=== PATIENT | female | born 1965 | race Caucasian/White ===

== ENCOUNTER → 2019-12-10 | Outpatient (CLI) | payer BC ==
[~2019-12-10] MED LIST: ASPI1TAB PO; CALC-694 PO; CARB200T48 PO; CARB200T76 PO; CARB400T PO; CARB400T4 PO; CYCL10TA9 PO; FERR240T15 PO; FEXO1TAB42 PO; FISH1200 PO; FOLIC ACID; GLUCOSAMINE; GLUCOSAMINE PO; HYDR-2889 PO; HYDR-34 PO; HYDR-3714 PO; HYDR-3720 PO; HYDR-4342 PO; HYDR1CAP2; INUL1TAB3 PO; IRON; MAGN250T2 PO; MV-M1TAB57 PO; ONDN4T PO; PANT40TA2 PO; PANT40TA3 PO; POTA99TA21 PO; ROPI0.5T4 PO; SUCR1TAB PO; SUCR1TAB36 PO
== END ==
LOC: LAB FS 10:34
PROVIDERS: ATTEND Orthopaedic Surgery
DX: Z01.812 Encounter for preprocedural laboratory examination (principal); M75.102 Unspecified rotator cuff tear or rupture of left shoulder, not specified as traumatic; S43.432A Superior glenoid labrum lesion of left shoulder, initial encounter; Z20.828 Contact with and (suspected) exposure to other viral communicable diseases
CPT/HCPCS: 87635

== ENCOUNTER 2019-12-13 10:58 | Outpatient (RCR) | payer BC ==
[~2019-12-13] VITALS: Ht 163 cm; Wt 110.5 kg
[~2019-12-13 10:58] MED LIST changes: -CALC-694 PO; -CARB200T48 PO; -CARB400T4 PO; -FERR240T15 PO; -HYDR-4342 PO; -MAGN250T2 PO; -MV-M1TAB57 PO; -PANT40TA3 PO; -POTA99TA21 PO
[2019-12-13] MEDS ORDERED: CALC-694 PO (12:41)
[2019-12-13] MEDS ORDERED: POTA99TA21 PO (12:41)
[2019-12-13] MEDS ORDERED: HYDR-4342 PO (12:41)
[2019-12-13] MEDS ORDERED: PANT40TA3 PO (12:41)
[2019-12-13] MEDS ORDERED: CARB400T4 PO (12:41)
[2019-12-13] MEDS ORDERED: MAGN250T2 PO (12:41)
[2019-12-13] MEDS ORDERED: CARB200T48 PO (12:41)
[2019-12-13] MEDS ORDERED: MV-M1TAB57 PO (12:41)
[2019-12-13] MEDS ORDERED: FERR240T15 PO (12:41)
== END 2019-12-13 12:46 | disposition home or self-care (01) ==
LOC: PREOP 10:58
PROVIDERS: ATTEND Orthopaedic Surgery
DX: Z01.818 Encounter for other preprocedural examination (principal)

== ENCOUNTER 2019-12-15 08:49 | Day surgery (SDC) | payer BC ==
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
[2019-12-15] VITALS (9 sets, daily range): BP systolic 93–151; BP diastolic 42–109
[~2019-12-15] VITALS: Ht 163 cm; Wt 110.5 kg
[~2019-12-15 08:49] MED LIST changes: +CALC-694 PO; +CARB200T48 PO; +CARB400T4 PO; +FERR240T15 PO; +HYDR-4342 PO; +MAGN250T2 PO; +MV-M1TAB57 PO; +PANT40TA3 PO; +POTA99TA21 PO; +oxyCODONE/APAP 5/325MG (PERCOCET 5) TABLET PO PRN
[2019-12-15] MEDS ORDERED: ceFAZolin INJECTION 1,000 MG in WATER (STERILE) FOR INJECTION 10 ML IV ONE (09:00)
--- NOTE | 2019-12-15 09:23 | Progress Note-Pre Operative ---
Pre-Operative Progress Note H&P Reviewed The H&P was reviewed, patient examined and no changes noted. Date Seen by Provider: Dec 15, 2019 Time Seen by Provider: : Date H&P Reviewed: Dec 15, 2019 Time H&P Reviewed: : Pre-Operative Diagnosis: left shoulder SLAP tear SOTO BURLESON MD Dec 15, 2019 09:23
--- NOTE | 2019-12-15 09:24 | Progress Note-Post Operative ---
Post-Operative Progess Note Surgeon (s)/Dish Washer (s) Surgeon SOTO BURLESON MD Dish Washer: Dae Corrales Pre-Operative Diagnosis left shoulder SLAP tear Post-Operative Diagnosis left shoulder SLAP tear Procedure & Operative Findings Date of Procedure 12/15/19 Procedure Performed/Findings left shoulder arthroscopic biceps tenotomy and labral debridement Anesthesia Type GETA Estimated Blood Loss Estimated blood loss (mL): minimal Specimens/Packing Specimens Removed none Packing: none SOTO BURLESON MD Dec 15, 2019 09:24
[2019-12-15] MEDS ORDERED: BUPIVACAINE 0.25% 30 ML (SENSORCAINE) VIAL ONE ×2 (09:33→10:21)
[2019-12-15] MEDS ORDERED: MIDAZOLAM 2 MG/2 ML (VERSED) VIAL ONE (09:33)
[2019-12-15] MEDS: LACTATED RINGERS 1,000 ML IV PRN ×2 (09:34→12:30)
--- NOTE | 2019-12-15 09:37 | NUR ---
Pt PREFERS TO SCHEDULE HER OWN PT SESSIONS, WILL CALL PT IN [place] AFTER SHE GETS HOME
[2019-12-15] MEDS ORDERED: morphine PF (DURAMORPH) 10 MG/10 ML AMP ONE (10:21)
[2019-12-15] MEDS ORDERED: ONDANSETRON 4 MG/2 ML (SDV) Z0FRAN ONE (11:00)
[2019-12-15] MEDS ORDERED: LIDOCAINE PF 2% 5 ML (XYLOCAINE) VIAL ONE (11:00)
[2019-12-15] MEDS ORDERED: proPOfol 200 MG/20 ML (DIPRIVAN) VIAL IV ONE (11:00)
[2019-12-15] MEDS ORDERED: fentaNYL INJECTION 100 MCG/2 ML AMP ONE (11:01)
--- NOTE | 2019-12-15 11:58 | Anesthesia-General Post-Op ---
General Patient Condition Mental Status/LOC: Same as Preop Cardiovascular: Satisfactory Nausea/Vomiting: Absent Respiratory: Satisfactory Pain: Controlled Complications: Absent Post Op Complications Complications None Follow Up Care/Instructions Patient Instructions None needed. Anesthesia/Patient Condition Patient Condition Patient is doing well, no complaints, stable vital signs, no apparent adverse anesthesia problems. No complications reported per nursing. IVAN REYNOLDS CRNA Dec 15, 2019 11:58
[2019-12-15] MEDS ORDERED: morphine INJ 10 MG/ML 1ML (SYR OR VIAL) IVP ONE (12:00)
[2019-12-15] MEDS ORDERED: ONDANSETRON 4 MG/2 ML (SDV) Z0FRAN IVP PRN (12:00)
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
== END 2019-12-15 13:38 | disposition home or self-care (01) ==
LOC: SDC 08:49
PROVIDERS: ATTEND Orthopaedic Surgery
DX: S43.432A Superior glenoid labrum lesion of left shoulder, initial encounter (principal); G40.909 Epilepsy, unspecified, not intractable, without status epilepticus; M19.90 Unspecified osteoarthritis, unspecified site; K31.84 Gastroparesis; X58.XXXA Exposure to other specified factors, initial encounter; Z90.710 Acquired absence of both cervix and uterus; Z90.49 Acquired absence of other specified parts of digestive tract; Z96.651 Presence of right artificial knee joint; Z83.3 Family history of diabetes mellitus; Z82.49 Family history of ischemic heart disease and other diseases of the circulatory system
CPT/HCPCS: 87081

== ENCOUNTER 2020-10-18 05:40 | Outpatient (CLI) | payer BC ==
[~2020-10-18] VITALS: Ht 162.6 cm; Wt 113.6 kg
[~2020-10-18 05:40] MED LIST changes: +HYDR-3817 PO; -HYDR-4342 PO; -PANT40TA3 PO; +PANT40TA52 PO; -oxyCODONE/APAP 5/325MG (PERCOCET 5) TABLET PO PRN
[2020-10-18] MEDS ORDERED: OMG1KC PO (09:14)
[2020-10-18] MEDS ORDERED: GLUC100016 PO (09:14)
[2020-10-18] MEDS ORDERED: HYDR-3817 PO (09:14)
== END 2020-10-18 10:12 ==
LOC: PREOP 05:40
PROVIDERS: ATTEND Orthopaedic Surgery
DX: Z01.818 Encounter for other preprocedural examination (principal); S43.422A Sprain of left rotator cuff capsule, initial encounter

== ENCOUNTER 2020-10-25 07:59 | Day surgery (SDC) | payer BC ==
--- NOTE | 2020-10-18 20:35 | HISTORY AND PHYSICAL ---
DATE OF SERVICE: ADMISSION HISTORY AND PHYSICAL This will be for outpatient surgery on 10/25/2020 for left rotator cuff repair. HISTORY OF PRESENT ILLNESS: The patient is a 55-year-old right hand dominant female with several year history of progressive worsening left shoulder pain. An MRI revealed a SLAP tear as well as a full-thickness supraspinatus tear. She reports weakness. She has undergone treatment with injections without relief. Due to functional impairment and failure to improve with conservative measures, the patient elected to proceed with surgical intervention. REVIEW OF SYSTEMS: No chest pain, no shortness of breath, no dysuria. PAST MEDICAL HISTORY: Allergic rhinitis, osteoarthritis, epilepsy, gastroparesis. PAST SURGICAL HISTORY: [place] tooth, , tubal ligation, total knee arthroplasty, right knee, carpal tunnel, cholecystectomy, gastric. FAMILY HISTORY: Significant for coronary artery disease, diabetes. PRIMARY CARE PROVIDER: Outside physician. MEDICATIONS: Tegretol, hydrocodone, ropinirole, Protonix, iron, magnesium, potassium, calcium. ALLERGIES: REGLAN and ERYTHROMYCIN. SOCIAL HISTORY: The patient is a former smoker. Denies alcohol use. PHYSICAL EXAMINATION: GENERAL: The patient is well-developed, well-nourished, in no acute distress. HEENT: Normocephalic, atraumatic. Pupils are equal, round and reactive to light. Oropharynx is clear. NECK: Supple, no lymphadenopathy. LUNGS: Clear to auscultation bilaterally. HEART: Regular rate and rhythm. ABDOMEN: Soft, nontender, nondistended. EXTREMITIES: Left shoulder demonstrates symmetric forward elevation, external and internal rotation with marked weakness with abduction and external rotation. She has a positive drop arm sign, positive Lincoln's maneuver. IMPRESSION: Left rotator cuff tear with SLAP tear. PLAN: Left shoulder arthroscopy, biceps tenotomy, acromioplasty and open rotator cuff repair. The risks, benefits, options, ramifications and recovery were discussed at length with the patient. She understands and wishes to proceed. Job ID: [id number] DocumentID: [id number] Dictated Date: 10/16/2020 08:38:14 Drone Pilot Date: 10/16/2020 10:21:18 Dictated By: SOTO BURLESON MD
[2020-10-25] VITALS (11 sets, daily range): BP systolic 74–160; BP diastolic 31–99
[~2020-10-25] VITALS: Ht 162.6 cm; Wt 113.6 kg
[~2020-10-25 07:59] MED LIST changes: +GLUC100016 PO; +HYDROmorphone (DILAUDID) 4 MG TAB PO PRN; +OMG1KC PO
[2020-10-25] MEDS ORDERED: ceFAZolin INJECTION 1,000 MG in WATER (STERILE) FOR INJECTION 10 ML IV ONE (08:15)
[2020-10-25] MEDS ORDERED: proPOfol 200 MG/20 ML (DIPRIVAN) VIAL IV ONE (08:31)
[2020-10-25] MEDS ORDERED: fentaNYL INJ 100 MCG/2 ML AMP ONE (08:31)
[2020-10-25] MEDS ORDERED: ONDANSETRON 4 MG/2 ML (SDV) Z0FRAN ONE (08:31)
[2020-10-25] MEDS ORDERED: LIDOCAINE PF 2% 5 ML (XYLOCAINE) VIAL ONE (08:31)
[2020-10-25] MEDS ORDERED: ROCURONIUM 10 MG/ML 5 ML SYRINGE IV ONE (08:31)
[2020-10-25] MEDS ORDERED: SEVOFLURANE (ULTANE) 15 ML INHAL SOLN ONE ×4 (08:31→10:13)
[2020-10-25] MEDS ORDERED: MIDAZOLAM 2 MG/2 ML (VERSED) VIAL ONE (08:31)
[2020-10-25] MEDS ORDERED: BUPIVACAINE 0.25% 30 ML (SENSORCAINE) VIAL ONE ×2 (08:37→09:00)
[2020-10-25] MEDS ORDERED: morphine PF (DURAMORPH) 10 MG/10 ML AMP ONE (08:37)
[2020-10-25] MEDS: LACTATED RINGERS 1,000 ML IV PRN ×2 (08:40→10:45)
--- NOTE | 2020-10-25 09:07 | Progress Note-Pre Operative ---
Pre-Operative Progress Note H&P Reviewed The H&P was reviewed, patient examined and no changes noted. Date Seen by Provider: Oct 25, 2020 Time Seen by Provider: 09:07 Date H&P Reviewed: Oct 25, 2020 Time H&P Reviewed: 07:11 Pre-Operative Diagnosis: left rotator cuff and SLAP tears SOTO BURLESON MD Oct 25, 2020 09:07
--- NOTE | 2020-10-25 09:11 | Progress Note-Post Operative ---
Post-Operative Progess Note Surgeon (s)/Battery Assembler (s) Surgeon SOTO BURLESON MD Battery Assembler: Dae Corrales Pre-Operative Diagnosis left rotator cuff and SLAP tears Post-Operative Diagnosis left rotator cuff tear Procedure & Operative Findings Date of Procedure 10/25/20 Procedure Performed/Findings left shoulder arthroscopic acromioplasty and open rotator cuff repair Anesthesia Type GETA plus interscalene nerve block Estimated Blood Loss Estimated blood loss (mL): minimal Specimens/Packing Specimens Removed none Packing: none SOTO BURLESON MD Oct 25, 2020 09:11
[2020-10-25] MEDS ORDERED: NEOSTIGMINE 3 MG/3 ML VIAL ONE (10:04)
[2020-10-25] MEDS ORDERED: GLYCOPYRROLATE 0.2 MG/ML (ROBINUL) 2 ML VIAL ONE (10:04)
--- NOTE | 2020-10-25 10:28 | Anesthesia-General Post-Op ---
General Patient Condition Mental Status/LOC: Same as Preop Cardiovascular: Satisfactory Nausea/Vomiting: Absent Respiratory: Satisfactory Pain: Controlled Complications: Absent Post Op Complications Complications None Follow Up Care/Instructions Patient Instructions None needed. Anesthesia/Patient Condition Patient Condition Patient is doing well, no complaints, stable vital signs, no apparent adverse anesthesia problems. No complications reported per nursing. LARISA TONEY CRNA Oct 25, 2020 10:28
[2020-10-25] MEDS ORDERED: morphine INJ 10 MG/ML 1ML (SYR OR VIAL) IVP ONE (10:30)
[2020-10-25] MEDS ORDERED: fentaNYL INJ 100 MCG/2 ML AMP IVP ONE (10:30)
[2020-10-25] MEDS ORDERED: MEPERIDINE (DEMEROL) INJ 50 MG/ML IVP ONE (10:30)
[2020-10-25] MEDS ORDERED: ONDANSETRON 4 MG/2 ML (SDV) Z0FRAN IVP PRN (10:30)
[2020-10-25] MEDS ORDERED: HYDR4TAB49 PO (12:05)
--- NOTE | 2020-10-25 14:28 | OPERATIVE REPORT ---
DATE OF SERVICE: 10/25/2020 PREOPERATIVE DIAGNOSES: 1. Left shoulder SLAP tear. 2. Left shoulder rotator cuff tear. POSTOPERATIVE DIAGNOSIS: Left rotator cuff tear. PROCEDURES: 1. Left shoulder open rotator cuff repair. 2. Left shoulder arthroscopic acromioplasty. SURGEON: Corky Burleson MD PSYCHOLOGY CLINICIAN: Dae Corrales, who assisted throughout the procedure and closed the incisions. ANESTHESIA: General endotracheal by Tim Houston CRNA. ESTIMATED BLOOD LOSS: Minimal. DRAINS: None. COMPLICATIONS: None. POSTOPERATIVE PLAN: Passive range of motion and sling wear for 4 weeks. The patient was transferred to the recovery room awake and in stable condition. STATEMENT OF MEDICAL NECESSITY: The patient is a 55-year-old female with complaints of progressively worsening left shoulder pain. She has undergone treatment with injections and anti-inflammatories without relief. An MRI was obtained, which revealed a full-thickness supraspinatus tear. Due to functional impairment and failure to improve with conservative measures, the patient elected to proceed with surgical intervention. Examination under anesthesia revealed forward elevation of 170 degrees, external rotation of 80 degrees, internal rotation of 70 degrees. Arthroscopic findings demonstrated an absent biceps anchor. There was a full thickness supraspinatus tear with retraction approximately 3 cm. In addition to the superior aspect the subscapularis was retracted and nonmobile. Subacromial space demonstrated moderate bursitis with slope in the anterolateral acromion. DESCRIPTION OF PROCEDURE: After risks and benefits of procedure were discussed and questions were answered, an informed consent was signed and placed on chart, the operative site was confirmed in the preoperative holding area initialed by the surgeon. The patient was then transferred to the operating room after adequate levels of general endotracheal anesthetic were obtained, a timeout was called, confirming the operative site and examination under anesthesia was performed with above findings noted. The left shoulder and upper extremity were prepped and draped in the usual sterile fashion. Shoulder joint was injected with 20 mL fluid and standard posterior portal was placed. Under direct visualization, spinal needle was inserted anteriorly in the interval between the subscapularis, glenoid and humeral head. Labrum was probed with no significant tearing noted. Scope was then redirected in the subacromial space. Lateral portal was created. Bursectomy was performed. The acromion was planed to a flat type 1 acromion. The lateral portal was then extended. The rotator cuff tear was mobilized. A single corkscrew anchor was placed and a modified Maxi-Moses repair was performed. The subscapularis could not be mobilized with this left approximately 1 cm gap anteriorly. The remainder of the rotator cuff was closed very well. The shoulder joint was copiously irrigated. The deltoid was repaired in [id number] fashion using #2 FiberWire in [id number] interrupted fashion. The wound was further irrigated, 2-0 Vicryl was used to reapproximate subcutaneous tissue and skin was closed with 4-0 nylon in a running alternating horizontal mattress fashion. The portal sites were closed with 4-0 nylon in a simple interrupted fashion. Shoulder joint was injected with Duramorph. The portal sites and incision were infiltrated with plain Marcaine. A soft dressing and sling were applied and the patient was transferred to the recovery room awake and in stable condition. Job ID: [id number] DocumentID: [id number] Dictated Date: 10/25/2020 10:22:05 Operating Room Specialist Date: 10/25/2020 14:27:33 Dictated By: CORKY BURLESON MD
== END 2020-10-25 12:47 | disposition home or self-care (01) ==
LOC: SDC 07:59
PROVIDERS: ATTEND Orthopaedic Surgery
DX: S43.432A Superior glenoid labrum lesion of left shoulder, initial encounter (principal); M75.102 Unspecified rotator cuff tear or rupture of left shoulder, not specified as traumatic; K21.9 Gastro-esophageal reflux disease without esophagitis; M19.90 Unspecified osteoarthritis, unspecified site; E66.9 Obesity, unspecified; Z68.41 Body mass index [BMI] 40.0-44.9, adult; Z79.899 Other long term (current) drug therapy
CPT/HCPCS: 23412; 29822; 29826; 87081; C1713

== ENCOUNTER 2021-09-18 10:40 | Emergency (ER) | payer BC ==
[~2021-09-18] VITALS: Ht 162 cm; Wt 113.6 kg
[~2021-09-18 10:40] MED LIST changes: +HYDR4TAB49 PO; -HYDROmorphone (DILAUDID) 4 MG TAB PO PRN; -MAGN250T2 PO; +MAGN250T31 PO; -POTA99TA21 PO; +POTA99TA26 PO
[2021-09-18] MEDS ORDERED: HYDROcodone/APAP 5 MG/325 MG (LORTAB) TAB PO ONE (11:00)
--- NOTE | 2021-09-18 11:02 | ED Lower Extremity ---
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 MORE SWELLING THAN NORMAL PER PT SHE HAS A HX OF SPRAINING THAT ANKLE YEARS AGO X 2. Source: patient Exam Limitations: no limitations History of Present Illness Date Seen by Provider: Sep 18, 2021 Time Seen by Provider: 10:42 Initial Comments 56-year-old female with past medical history of seizure disorder coming in due to left ankle pain. 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 She had immediate lateral ankle pain that was moderate, constant, throbbing, worse with walking. She has been able to take some steps since then. She has not had anything for pain as of yet. When she has severe pain at home she takes hydrocodone but has not had any today. She is otherwise denying any other acute complaints and did not hit her head or pass out. Allergies and Home Medications Allergies Coded Allergies: erythromycin base (Verified Adverse Reaction, Unknown, 10/18/20) interacts with seizure medication- makes patient sick metoclopramide (Verified Adverse Reaction, Unknown, 10/18/20) interacts with medication- makes patient sick oxycodone (Verified Adverse Reaction, Unknown, 10/18/20) interacts with seizure medication Patient Home Medication List Home Medication List Reviewed: Yes Calcium Carbonate/Vitamin D3 (Calcium 600 + Vit D Caplet) 1 Each Tablet, 1 EACH PO BID, (Reported) Entered as Reported by: MARCOS PATEL on 12/13/19 1241 Carbamazepine (Carbamazepine Xr) 200 Mg Tab.er.12h, 200 MG PO HS, (Reported) Entered as Reported by: MARCOS PATEL on 12/13/19 1241 Carbamazepine (Carbamazepine Xr) 400 Mg Tab.er.12h, 800 MG PO HS, (Reported) Entered as Reported by: MARCOS PATEL on 12/13/19 1241 Ferrous Gluconate (Iron) 240 Mg Tablet, 240 MG PO DAILY, (Reported) Entered as Reported by: MARCOS PATEL on 12/13/19 1241 Glucosamine Sulfate 2Kcl (Glucosamine) 1,000 Mg Tablet, 1,000 MG PO DAILY, (Reported) Entered as Reported by: NESTOR DORSEY on 10/18/20 0914 Hydromorphone HCl (Dilaudid) 4 Mg Tablet, 4 MG PO Q4H Prescribed by: PETEY EDMONDS on 10/25/20 1205 Inulin/Chromium Picolinate (Fiber Select Gummies Tab Chew) 1 Each Tab.chew, 2 EACH PO BID, (Reported) Entered as Reported by: AMERICA TREVIZO on 01/03/15 154 Magnesium (Magnesium) 250 Mg Tablet, 250 MG PO DAILY, (Reported) Entered as Reported by: MARCOS PATEL on 12/13/19 1241 Mv-Mn/Folic Acid/Calcium/Vit K (Women's 50 Plus Multivit Tab) 1 Each Tablet, 1 EACH PO DAILY, (Reported) Entered as Reported by: MARCOS PATEL on 12/13/19 1241 [place] 3 Polyunsat Fatty Acids (Fish Oil 1,000 mg Capsule) 1,000 Mg Cap, 1,000 MG PO DAILY, (Reported) Entered as Reported by: NESTOR DORSEY on 10/18/2014 Pantoprazole Sodium (Pantoprazole Sodium) 40 Mg Tablet.dr, 40 MG PO BID, (Reported) Entered as Reported by: MARCOS PATEL on 12/13/19 1241 Potassium Gluconate (Potassium) 99 Mg Tablet, 99 MG PO DAILY, (Reported) Entered as Reported by: MARCOS PATEL on 12/13/19 1241 Ropinirole HCl (Ropinirole HCl) 0.5 Mg Tablet, 0.5 MG PO BID, (Reported) Entered as Reported by: AMERICA TREVIZO on 01/03/15 154 Review of Systems Constitutional: No chills, No fever EENTM: No blurred vision Respiratory: No cough, No short of breath Cardiovascular: no symptoms reported Gastrointestinal: no symptoms reported Genitourinary: no symptoms reported Musculoskeletal: joint pain Skin: no symptoms reported Psychiatric/Neurological: No Symptoms Reported All Other Systems Reviewed Negative Unless Noted: Yes Past Mlrnoms-Wkcxuo-Kzwszo Hx Patient Social History Tobacco Use?: No Use of E-Cig and/or Vaping dev: No Substance use?: No Alcohol Use?: No Pt feels they are or have been: No Immunizations Up To Date Tetanus Booster (TDap): Unknown First/Initial COVID19 Vaccinat: 2020 Second COVID19 Vaccination Maurilio: 2020 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: [employer] Seasonal Allergies Seasonal Allergies: Yes Past Medical History Surgeries: Yes (R KNEE X4,ORAL, r tkr, L thumb, L CTR, bleeding ulcer, hernia x5, L shoulde) Abdominal, Section, Gallbladder, Hysterectomy, Orthopedic, Tubal Ligation Respiratory: No Currently Using CPAP: No Currently Using BIPAP: No Cardiac: No Neurological: Yes Seizure Disorder Reproductive Disorders: No Female Reproductive Disorders: Denies 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 oz. 58.917764sa; 43.00 BMI Method: General Appearance: WD/WN, no apparent distress HEENT: PERRL/EOMI, normal ENT inspection, pharynx normal Neck: non-tender, full range of motion, supple, normal inspection Cardiovascular: regular rate, rhythm, no edema, no murmur Respiratory: chest non-tender, lungs clear, normal breath sounds, no respiratory distress, no accessory muscle use Gastrointestinal: normal bowel sounds, non tender, soft; No distended, No guarding, No rebound Back: normal inspection, no vertebral tenderness Hips: bilateral hip non-tender, bilateral hip normal inspection, bilateral hip normal range of motion, bilateral hip no evidence of injury Legs: bilateral leg non-tender, bilateral leg normal inspection, bilateral leg normal range of motion, bilateral leg no evidence of injury Knees: bilateral knee non-tender, bilateral knee normal inspection, bilateral knee normal range of motion, bilateral knee no evidence of injury Ankles: right ankle non-tender, right ankle normal inspection, right ankle normal range of motion, right ankle no evidence of injury; left ankle bone te nderness (lateral malleolus ), left ankle limited range of motion, left ankle soft tissue tenderness, left ankle swelling Feet: bilateral foot non-tender (no pain along the 5th metatarsal or proximal fib), bilateral foot normal inspection, bilateral foot normal range of motion, bilateral foot no evidence of injury Neurologic/Tendon: normal sensation, normal motor functions, normal tendon functions 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, no motor/sensory deficits, alert, normal mood/affect, oriented x 3 Skin: normal color, warm/dry Lymphatic: no adenopathy Progress/Results/Core Measures Results/Orders My Orders Orders - TWAN ALAS MD Ankle 3 View Left (09/18/21 10:58) Hydrocodone/Apap 5/325 Tablet (Lortab 5 (09/18/21 11:00) Medications Given in ED Current Medications Medications Dose Ordered Sig/Jean Route Start Time Stop Time Status Last Admin Dose Admin Acetaminophen/ Hydrocodone Bitart 1 ea ONCE ONCE PO 09/18/21 11:00 09/18/21 11:01 DC 09/18/21 11:21 1 EA Vital Signs/I&O 09/18/21 10:48 Temp 37.0 Pulse 100 Resp 20 B/P (MAP) 153/92 (112) Pulse Ox 97 O2 Delivery Room Air Blood Pressure Mean: 112 Progress Progress Note : Progress Note 56-year-old female with above history coming in due to left lateral ankle pain after twisting her ankle. ABCs were intact and vitals were stable on present ation. Physical exam with left lateral ankle swelling and pain. X-ray of the left ankle on my interpretation with an avulsion fracture of the distal fibula. She will be placed in a boot and given a walker for her follow-up with orthopedics here in town. I believe she is stable for discharge with outpatient follow-up. She was sent home with strict return precautions. Diagnostic Imaging Diagonstic Imaging: Xray (left ankle) Comments NAME: DEUCE RILEY [facility] REC#: [id number] PT STATUS: REG ER : 1965 PHYSICIAN: TWAN ALAS MD ADMIT DATE: 09/18/21/ER FS Draft Date of Exam:09/18/21 ANKLE 3 VIEW LEFT INDICATION: Left ankle pain post injury. TECHNIQUE: AP, oblique, and lateral views of the left ankle were obtained. FINDINGS: There is a curvilinear calcification adjacent to the distal fibula, compatible with an avulsed fragment. The remaining structures are intact. The ankle joint appears in good alignment. IMPRESSION: Curvilinear avulsion fracture off the distal tip of the lateral malleolus of the distal fibula. Dictated on workstation # [id number] Dict: 09/18/21 1114 Trans: 09/18/21 1116 [id number] Interpreted by: VIJAYA GA MD Electronically signed by: Departure Impression Primary Impression: Fracture of distal fibula Qualified Codes: S82.832A - Other fracture of upper and lower end of left fibula, initial encounter for closed fracture Disposition: 01 HOME, SELF-CARE Condition: Stable Departure-Patient Inst. Decision time for Depature: 11:22 Referrals: NO,LOCAL PHYSICIAN (PCP) Primary Care Physician SOPHIE JAIMES Patient Instructions: Ankle Fracture ED Add. Discharge Instructions: Your ankle has broken, but fortunately the bone is close to the normal position so typically this does not require surgery. Do not put any weight on it, and follow-up with Gómez Jaimes here in [facility] who is the bone specialist within the next 1 to 2 weeks. Work/School Note: Work Release Form Date Seen in the Emergency Department: Sep 18, 2021 Return to Work: Sep 19, 2021 Restrictions: No Restrictions TWAN ALAS MD Sep 18, 2021 11:02
--- NOTE | 2021-09-18 11:17 | Diagnostic Imaging Report ---
INDICATION: Left ankle pain post injury. TECHNIQUE: AP, oblique, and lateral views of the left ankle were obtained. FINDINGS: There is a curvilinear calcification adjacent to the distal fibula, compatible with an avulsed fragment. The remaining structures are intact. The ankle joint appears in good alignment. IMPRESSION: Curvilinear avulsion fracture off the distal tip of the lateral malleolus of the distal fibula. Dictated by: Dictated on workstation # [id number]
[2021-09-18 11:31] VITALS: BP 153/92
== END 2021-09-18 11:31 | disposition home or self-care (01) ==
LOC: EDUNIT# 10:40 → ER FS 10:42
DX: S82.62XA Displaced fracture of lateral malleolus of left fibula, initial encounter for closed fracture (principal); X50.1XXA Overexertion from prolonged static or awkward postures, initial encounter
CPT/HCPCS: 73610; 99283; L2114